=== PATIENT | male | born 1990 | race American Indian/Alaskan Native ===

== ENCOUNTER 2020-12-03 00:40 | Emergency (ER) | payer SELFPAY ==
[~2020-12-03] VITALS: Ht 172.7 cm; Wt 81.6 kg
[2020-12-03 01:03] VITALS: BP 147/90
== END 2020-12-03 02:53 | disposition left against medical advice (07) ==
LOC: ER 00:40
DX: N48.89 Other specified disorders of penis (principal); Z53.21 Procedure and treatment not carried out due to patient leaving prior to being seen by health care provider